=== PATIENT | female | born 1985 | race Caucasian/White ===

== ENCOUNTER 2021-07-06 20:29 | Observation (INO) | payer OTHER, SELFPAY ==
[~2021-07-06] VITALS: Ht 175.3 cm; Wt 68.0 kg
[2021-07-06 20:29] VITALS: BP 113/81
--- NOTE | 2021-07-06 20:36 | NUR ---
Jason VINSON via gurney to bed 03.
[2021-07-06] MEDS ORDERED: NACL 0.9% 1,000 ML IV ONE (21:05)
[2021-07-06] MEDS ORDERED: KETOROLAC 30 MG/ML VIAL IVP ONE (21:05)
[2021-07-06 21:06] LABS: BASOPHILS % (AUTO) 0.6 % (0.0-2.0); EOSINOPHILS # (AUTO) 0.3 K/uL (0-0.4); EOSINOPHILS % (AUTO) 4.4 % (0.0-4.0); HEMATOCRIT 31.5 % (36-48); HEMOGLOBIN 10.3 g/dL (12.0-16.0); LYMPHOCYTES # (AUTO) 2.2 K/uL (2.5-16.5); LYMPHOCYTES % (AUTO) 32.1 % (20.5-51.1); MEAN CORPUSCULAR HEMOGLOBIN 26 pg (27-31); MEAN CORPUSCULAR HGB CONC 33 g/dL (33-37); MEAN CORPUSCULAR VOLUME 78.2 fL (80-94); MONOCYTES # (AUTO) 0.6 K/uL (0.8-1.0); NEUTROPHILS # (AUTO) 3.8 K/uL (1.8-7.7); NEUTROPHILS % (AUTO) 54.9 % (42.2-75.2); PLATELET COUNT (AUTO) 270 K/uL (140-450); RED BLOOD CELL COUNT(AUTO) 4.03 MIL/uL (4.20-5.40); RED CELL DISTRIBUTION WIDTH 17.4 % (11.6-13.7); WHITE BLOOD COUNT (AUTO) 6.9 K/uL (4.8-10.8)
[2021-07-06 21:21] LABS: ALBUMIN 3.3 g/dL (3.4-5.0); ANION GAP 10.3 (8-16); CARBON DIOXIDE 30.4 mmol/L (21-32); CREATININE 0.9 mg/dL (0.6-1.3); POTASSIUM 3.7 mmol/L (3.5-5.1); TOTAL BILIRUBIN 0.2 mg/dL (0.0-1.0)
[2021-07-06] MEDS ORDERED: KEP500 PO (22:02)
[2021-07-06] MEDS ORDERED: KETOROLAC 30 MG/ML VIAL ONE (22:37)
[2021-07-06] MEDS ORDERED: POTASSIUM CHLORIDE 10 MEQ TABER PO PRN (23:10)
[2021-07-06] MEDS ORDERED: MAGNESIUM OXIDE 400 MG TAB PO PRN (23:10)
[2021-07-06] MEDS ORDERED: ONDANSETRON 4 MG/2 ML VIAL IVP PRN (23:10)
[2021-07-06] MEDS ORDERED: ACETAMINOPHEN 325 MG TAB PO PRN (23:10)
[2021-07-06] MEDS ORDERED: MORPHINE SULFATE 4 MG/ML SYR IVP PRN (23:10)
[2021-07-06] MEDS ORDERED: MAG SULF 2000 MG/WATER PREMIX 50 ML IV PRN (23:10)
[2021-07-06] MEDS ORDERED: KCL 20 MEQ/WATER INJ PREMIX 200 ML IV PRN (23:10)
--- NOTE | 2021-07-07 00:30 | NUR ---
PT SLEEPING. CHEST RISE PRESENT. NO SIGNS OF DISTRESS.
[2021-07-07] MEDS: HYDROcodone/APAP 5/325 MG 1 TAB TAB PO PRN ×2 (02:12→11:57)
--- NOTE | 2021-07-07 05:42 | NUR ---
pt ambulates to the restroom independently.
[2021-07-07 07:14] LABS: BASOPHILS % (AUTO) 0.7 % (0.0-2.0); EOSINOPHILS # (AUTO) 0.3 K/uL (0-0.4); EOSINOPHILS % (AUTO) 4.7 % (0.0-4.0); HEMATOCRIT 28.8 % (36-48); HEMOGLOBIN 9.4 g/dL (12.0-16.0); LYMPHOCYTES # (AUTO) 2.2 K/uL (2.5-16.5); LYMPHOCYTES % (AUTO) 36.9 % (20.5-51.1); MEAN CORPUSCULAR HEMOGLOBIN 26 pg (27-31); MEAN CORPUSCULAR HGB CONC 33 g/dL (33-37); MEAN CORPUSCULAR VOLUME 78.3 fL (80-94); MONOCYTES # (AUTO) 0.5 K/uL (0.8-1.0); MONOCYTES % (AUTO) 8.2 % (1.7-9.3); NEUTROPHILS # (AUTO) 2.9 K/uL (1.8-7.7); NEUTROPHILS % (AUTO) 49.5 % (42.2-75.2); PLATELET COUNT (AUTO) 242 K/uL (140-450); RED BLOOD CELL COUNT(AUTO) 3.68 MIL/uL (4.20-5.40); RED CELL DISTRIBUTION WIDTH 17.6 % (11.6-13.7); WHITE BLOOD COUNT (AUTO) 5.9 K/uL (4.8-10.8)
--- NOTE | 2021-07-07 07:25 | NUR ---
handoff to rohit
[2021-07-07 08:00] VITALS: BP 118/75
--- NOTE | 2021-07-07 08:00 | NUR ---
PT ARRIVED TO UNIT VIA GURNEY. PT IS AWAKE AND ALERT. A&OX4. ON RA WITH BREATHING UNLABORED. AMBULATORY INDEPENDENTLY. SKIN IS WARM, DRY, AND INTACT. IV IS IN THE RIGHT AC 18 GAUGE SALINE LOCKED. PT IS STABLE. PLAN OF CARE DISCUSSED.
--- NOTE | 2021-07-07 08:00 | NUR ---
Patient will be admitted to care of Dr. Hooper. Admited to TELE. Will go to room 119-A. Belongings list completed. Report to KENIA Hogan.
[2021-07-07 08:34] LABS: ANION GAP 10.3 (8-16); CREATININE 0.7 mg/dL (0.6-1.3); MAGNESIUM 2.1 mg/dL (1.8-2.4); POTASSIUM 4.3 mmol/L (3.5-5.1); TOTAL BILIRUBIN 0.1 mg/dL (0.0-1.0)
[2021-07-07] MEDS ORDERED: DOCUSATE SODIUM 100 MG GELCAP PO SCH (09:00)
--- NOTE | 2021-07-07 10:00 | NUR ---
PT WAS GIVEN CRACKERS REQUESTED. PT ATE ALL OF BREAKFAST 100%. GOOD APPETITE AND PT DENIES ANY DISTRESS. DENIES SOB, DIZZINESS, OR HEADACHE. WILL CONTINUE TO MONITOR. FALL PRECAUTIONS IN PLACE.
--- NOTE | 2021-07-07 11:57 | NUR ---
PT STATES SHE HAS PAIN AT A SCALE OF 6/10 IN THE HEAD AND NECK. PT WAS GIVEN NORCO FOR PAIN. BP WAS STABLE PRIOR TO ADMINISTRATION OF MEDICATION. WILL CONTINUE TO MONITOR PAIN.
[2021-07-07 12:00] VITALS: BP 106/48
--- NOTE | 2021-07-07 14:30 | NUR ---
DC PLANNING PATIENT IS A 35-YEAR-OLD FEMALE ADMITTED ON 07/06/21 AT [facility]/ED DUE PATIENT WAS BROUGHT BY AMBULANCE DUE TO UNEXPLAINED SYNCOPAL EPISODE. PATIENT HAS HX. OF SICK SINUS SYNDROME. SW AND CM MET WITH PATIENT AT BEDSIDE TO DISCUSS AND GATHER PATIENT'S COLLATERAL INFORMATION. PATIENT REPORTED LIVING ALONE IN HER APARTMENT IN [facility]. PATIENT REPORTED LIVING CLOSE TO HER FAMILY FATHER AND SISTER BUT NOT HAVING A CLOSE RELATIONSHIP OR SUPPORT SYSTEM. PATIENT REPORTED BEEN ACTIVE AND INDEPENDENT AT HOME, PATIENT REPORTED NOT HAVING ADVANCE DIRECTIVES AND WAS NOT INTERESTED ON GETTING INFORMATION PACKET PROVIDED BY SW AT THE TIME OF VISIT. PATIENT REPORTED NOT HAVING OR NEEDING DME AND NOT HAVING ANY ISSUES WITH GETTING OR TAKING ANY MEDICATIONS AT [facility]. PATIENT REPORTED THAT SHE HAS NOT SEEN HER PCP IN A WHILE AND REPORTED HAVING HX OF MENTAL HEALTH SERVICES PROVIDED BY [facility] DUE TO HX. OF DX WITH PTSD, AND MOOD DISORDER. PATIENT STATED HAVING A PSYCHIATRIST AND THERAPIST THAT SEES IN REGULAR BASIS (WEEKLY). SW DISCUSSED WITH PATIENT THE INCIDENT THAT SHE REPORTED EXPERIENCE OVER THE WEEKEND AND OFFER RESOURCES PATIENT DECLINED ALL THE RESOURCES AND STATED THAT SHE ALREADY HAS SERVICES IN PLACE, SW EXPLAINED TO PATIENT THE NEED TO FOLLOW UP WITH AN APPOINTMENT WITHIN 5-7 DAYS WITH HER PCP AFTER HER DISCHARGE PATIENT AGREED TO FOLLOW UP; HOWEVER STATED "NO I DONT WANT YOU TO MAKE AN APPOINMENT, I WILL MAKE IT MY SELF. PATIENT STATED THAT HER SISTER WILL BE ASSISTING HIM WITH TRANSPORTATION BACK HOME WHEN SHE IS READY FOR DISCHARGE. SW WILL FOLLOW UP WITH PATIENT NEEDED.
--- NOTE | 2021-07-07 15:00 | NUR ---
PT WAS CLEARED BY PHYSICIANS AND READY FOR DISCHARGE. SPOKE WITH PT ABOUT DISCHARGE AND SHE IS CONCERNED ABOUT TRANSPORTATION. INFORMED [employer]; THEY WILL WORK ON GETTING PUBLIC TRANSPORT. MEANWHILE PT IS CALLING FAMILY TO GET A RIDE.
[2021-07-07 15:11] VITALS: BP 118/75
--- NOTE | 2021-07-07 15:30 | NUR ---
WENT OVER DISCHARGE PAPERWORK WITH PT. SHE VERBALIZED UNDERSTANDING. IV WAS REMOVED BY PATIENT WHEN I WAS NOT IN THE ROOM AND DISCARDED. BLEEDING WAS CONTROLLED. ID BAND WAS REMOVED. NO DISTRESS NOTED. VS ARE STABLE. PT IS READY FOR DISCHARGE. STATED HER SISTER WILL CALL HER BACK WITH AN UBER RIDE TIME. WILL WAIT FOR SISTER TO CALL BACK.
--- NOTE | 2021-07-07 15:52 | NUR ---
PT STATED HER UBER RIDE WAS READY, CURRENTLY ON THE PHONE WITH SISTER WHO ORDERED THE UBER. PT WAS TAKEN OUT BY WHEELCHAIR TO THE FRONT WHERE SHE IS WAITING FOR THE UBER TO ARRIVE. PT IS STABLE. NO DISTRESS NOTED. PT IS DISCHARGED.
--- NOTE | 2021-07-07 16:00 | NUR ---
DC PLANNING: THE PATIENT WAS BIBA AFTER PASSING OUT ON A BUS. H/O SICK SINUS SYNDROME ADMITTED FOR CARDIAC W/U. CM AND SW SPOKE WITH THE PATIENT AT BEDSIDE AND CONFIRMED HER ADDRESS AND PHONE NUMBER. SHE LIVES ALONE IN AN APARTMENT AND IS INDEPENDENT IN ALL ACTIVITIES, NO DME OR HOME HEALTH. SHE HAS NOT SEEN HER PCP FOR SOME TIME SHE STATES SHE HAS BEEN IN THE HOSPITAL FREQUENTLY WITH THE SAME C/O PASSING OUT. PATIENT TO DC TO HOME TODAY, HER SISTER HAS AGREED TO ASSIST WITH TRANSPORT BACK TO [place]. TORI WILL FOLLOW. Addendum: 07/07/21 at 1608 by Geno Fields CM Amended: Links added.
== END 2021-07-07 15:45 | disposition home or self-care (01) ==
LOC: MED 20:29 → MTU 23:13
PROVIDERS: ADMIT Hospitalist; ATTEND Hospitalist
DX: I49.5 Sick sinus syndrome (principal); Z20.822 Contact with and (suspected) exposure to COVID-19; D50.9 Iron deficiency anemia, unspecified; R55 Syncope and collapse; G40.909 Epilepsy, unspecified, not intractable, without status epilepticus; N83.8 Other noninflammatory disorders of ovary, fallopian tube and broad ligament; F12.90 Cannabis use, unspecified, uncomplicated; F43.10 Post-traumatic stress disorder, unspecified; Z79.899 Other long term (current) drug therapy
CPT/HCPCS: 36415; 80053; 83735; 84484; 85025; 87081; 87426; 93005; 96374; 99284; G0378; J1644; J1885